=== PATIENT | male | born 1950 | race American Indian/Alaskan Native ===

== ENCOUNTER 2017-07-03 17:10 | Emergency (ER) | payer SELFPAY ==
--- NOTE | 2017-07-03 16:25 | EDM.PDOC ---
ED HPI GENERAL MEDICAL PROBLEM - General Stated Complaint: IN BY AMBULANCE Time Seen by Provider: 07/03/17 16:05 Source of Information: Reports: Patient History Limitations: Reports: No Limitations - History of Present Illness INITIAL COMMENTS - FREE TEXT/NARRATIVE: This 67 yo male patient was brought to the ED by [facility] due to left arm numbness and the inability to move his left arm. The patient reports he noticed the symptoms this morning when he woke up (between 0630 and 0700). The patient reports he was last normal last night. The patient reports he was in the hospital in [place] 2 weeks ago due to a fall. The patient reports, prior to being in the [facility], the patient had fallen while he was walking out of the [employer] in [place]. The patient reports he fell and hit the back of his head. The patient reports he was hospitalized in [place] for about 20 days due to that fall. The patient reports he has been experiencing intermittent numbness in his left arm since the fall, but his symptoms had always gone away. The patient denies any drug or ETOH use. The patient report that he was told that he may have had a "minor stroke" while he was in the hospital in [place]. Onset: Today Onset Date: 07/03/17 Onset Time: 06:30 Duration: Constant (left arm numbness and weakness) Location: Reports: Upper Extremity, Left Quality: Reports: Other Severity: Moderate Improves with: Reports: None Worsens with: Reports: None Context: Reports: Other Associated Symptoms: Reports: No Other Symptoms - Related Data Allergies Allergy/AdvReac Type Severity Reaction Status Date / Time pollen extracts Allergy Sneezing Verified 11/01/15 19:51 meperidine [From Demerol] AdvReac Intermediate Vomiting Verified 07/03/17 16:21 Home Meds: Home Meds Hydrochlorothiazide 25 mg PO DAILY 07/03/17 [History] Potassium Chloride [Klor-Con 10] 1 tab PO DAILY 07/03/17 [History] Vit #108/Iron/FA [ One Tablet] 1 tab PO DAILY 07/03/17 [History ] Past Medical History Cardiovascular History: Reports: Hypertension Musculoskeletal History: Reports: Fracture Other Neuro History: exposure to agent orange - Infectious Disease History Infectious Disease History: Reports: TB - Past Surgical History GI Surgical History: Reports: Cholecystectomy Social & Family History - Family History Family Medical History: Unobtainable - Tobacco Use Smoking Status *Q: Current Every Day Smoker Years of Tobacco use: 10 Packs/Tins Daily: 0.1 - Recreational Drug Use Recreational Drug Use: No ED ROS GENERAL - Review of Systems Review Of Systems: ROS reveals no pertinent complaints other than HPI. ED EXAM, GENERAL - Physical Exam Exam: See Below Free Text/Narrative:: The patient was unkept (shirt was very dirty, skin was dirty) and the patient smelled of urine. Exam Limited By: Other (The patient was confused, but would answer orientation questions correctly.) General Appearance: Alert, WD/WN, Moderate Distress, Thin Eye Exam: Bilateral Eye: EOMI, Normal Inspection, PERRL Ears: Normal External Exam, Normal Canal, Hearing Grossly Normal, Normal TMs Nose: Normal Inspection, Normal Mucosa, No Blood Throat/Mouth: Normal Inspection, Normal Lips, Normal Teeth, Normal Gums, Normal Oropharynx, Normal Voice, No Airway Compromise Head: Atraumatic, Normocephalic Neck: Supple, Limited Range of Motion, Tender Lateral Respiratory/Chest: No Respiratory Distress, Lungs Clear, Normal Breath Sounds, No Accessory Muscle Use, Chest Non-Tender Cardiovascular: Normal Peripheral Pulses, Regular Rate, Rhythm, No Edema, No Gallop, No JVD, No Murmur, No Rub GI/Abdominal: Normal Bowel Sounds, Soft, Non-Tender, No Organomegaly, No Distention, No Abnormal Bruit, No Mass (Male) Exam: Deferred Rectal (Males) Exam: Deferred Extremities: Other (The patient was unable to squeeze with his left hand (the patient reports his hand is numb and that he is unable to move his arm or hand) . The patient also reports numbness in his left leg, but is able to move his leg and foot with minimal effort. ) Neurological: Alert, Oriented, CN II-XII Intact, Confused (The patient seems confused as to the last time his left arm and left leg felt normal, but consistently reports his left arm and left leg numbness started this morning. ) Psychiatric: Flat Affect Skin Exam: Warm, Dry, Intact, Normal Color, No Rash Lymphatic: No Adenopathy Course - Vital Signs Last Recorded V/S: Last Vital Signs Temp 37.3 C 07/03/17 16:07 Pulse 111 H 07/03/17 16:07 Resp 20 07/03/17 16:07 BP 169/111 H 07/03/17 16:07 Pulse Ox 92 L 07/03/17 16:07 - Orders/Labs/Meds Orders: Active Orders 24 hr Category Date Time Status EKG Documentation Completion [RC] URGENT Care 07/03/17 16:07 Ordered Cervical Spine wo Cont [CT] Urgent Exams 07/03/17 16:16 Ordered Chest 2V [CR] Urgent Exams 07/03/17 16:15 Ordered Head wo Cont [CT] Urgent Exams 07/03/17 16:15 Ordered DRUG SCREEN URINE BIORAD [URCHEM] Stat Lab 07/03/17 16:15 Uncollected UA W/MICROSCOPIC [URIN] Stat Lab 07/03/17 16:15 Uncollected Labs: Laboratory Tests 07/03/17 07/03/17 07/03/17 Range/Units 16:20 16:20 16:20 WBC 12.0 H (5.0-10.0) 10^3/uL RBC 4.22 L (4.6-6.2) 10^6/uL Hgb 14.3 (14.0-18.0) g/dL Hct 41.0 (40.0-54.0) % MCV 97.2 (80-100) fL MCH 33.9 (27.0-34.0) pg MCHC 34.9 (33.0-35.0) g/dL Plt Count 234 (150-450) 10^3/uL Neut % (Auto) 62.0 (42.2-75.2) % Lymph % (Auto) 26.3 (20.5-50.1) % Amelia % (Auto) 9.7 H (2-8) % Eos % (Auto) 1.6 (1.0-3.0) % Baso % (Auto) 0.4 (0.0-1.0) % PT 9.9 (9.0-12.0) SEC INR 1.0 (0.9-1.2) Sodium 140 (135-145) mmol/L Potassium 3.8 (3.6-5.0) mmol/L Chloride 104 (101-111) mmol/L Carbon Dioxide 24.0 (21.0-31.0) mmol/L Anion Gap 15.8 BUN 16 (7-18) mg/dL Creatinine 0.8 (0.6-1.3) mg/dL Est Cr Clr Drug Dosing 93.55 mL/min Estimated GFR (MDRD) > 60 BUN/Creatinine Ratio 20.00 Glucose 104 (74-105) mg/dL Calcium 9.4 (8.4-10.2) mg/dl Magnesium (1.8-2.5) mg/dL Total Bilirubin 0.6 (0.2-1.0) mg/dL AST 25 (10-42) IU/L ALT 14 (10-60) IU/L Alkaline Phosphatase 75 (42-121) IU/L Troponin I 0.31 H* (0.00-0.02) ng/ml Total Protein 7.8 (6.7-8.2) g/dl Albumin 4.0 (3.2-5.5) g/dl Globulin 3.8 Albumin/Globulin Ratio 1.05 Salicylates Acetaminophen Ethyl Alcohol mg/dL 07/03/17 Range/Units 16:20 WBC (5.0-10.0) 10^3/uL RBC (4.6-6.2) 10^6/uL Hgb (14.0-18.0) g/dL Hct (40.0-54.0) % MCV (80-100) fL MCH (27.0-34.0) pg MCHC (33.0-35.0) g/dL Plt Count (150-450) 10^3/uL Neut % (Auto) (42.2-75.2) % Lymph % (Auto) (20.5-50.1) % Amelia % (Auto) (2-8) % Eos % (Auto) (1.0-3.0) % Baso % (Auto) (0.0-1.0) % PT (9.0-12.0) SEC INR (0.9-1.2) Sodium (135-145) mmol/L Potassium (3.6-5.0) mmol/L Chloride (101-111) mmol/L Carbon Dioxide (21.0-31.0) mmol/L Anion Gap BUN (7-18) mg/dL Creatinine (0.6-1.3) mg/dL Est Cr Clr Drug Dosing mL/min Estimated GFR (MDRD) BUN/Creatinine Ratio Glucose (74-105) mg/dL Calcium (8.4-10.2) mg/dl Magnesium 1.5 L (1.8-2.5) mg/dL Total Bilirubin (0.2-1.0) mg/dL AST (10-42) IU/L ALT (10-60) IU/L Alkaline Phosphatase (42-121) IU/L Troponin I (0.00-0.02) ng/ml Total Protein (6.7-8.2) g/dl Albumin (3.2-5.5) g/dl Globulin Albumin/Globulin Ratio Salicylates < 4.0 Acetaminophen < 10.0 Ethyl Alcohol < 5 mg/dL Meds: Medications Discontinued Medications Generic Name Dose Route Start Last Admin Trade Name Freq PRN Reason Stop Dose Admin Aspirin 324 mg 07/03/17 16:51 Aspirin PO 07/03/17 16:52 ONETIME ONE Departure - Departure Time of Disposition: 17:04 Disposition: DC/Tfer to Acute Hospital 02 Condition: Poor Clinical Impression: NSTEMI (non-ST elevated myocardial infarction) - Discharge Information Forms: Interfacility Transfer EMTALA Care Plan Goals: Discussed the examination, lab, EKG and CT results with Dr. Romero (ED provider at [facility] in [place]). Dr. Romero accepted the patient for continued evaluation and management. The patient will be transported by [facility]. - My Orders Last 24 Hours: My Active Orders 07/03/17 16:07 EKG Documentation Completion [RC] URGENT 07/03/17 16:15 Chest 2V [CR] Urgent Head wo Cont [CT] Urgent DRUG SCREEN URINE BIORAD [URCHEM] Stat UA W/MICROSCOPIC [URIN] Stat 07/03/17 16:16 Cervical Spine wo Cont [CT] Urgent - Assessment/Plan Last 24 Hours: My Active Orders 07/03/17 16:07 EKG Documentation Completion [RC] URGENT 07/03/17 16:15 Chest 2V [CR] Urgent Head wo Cont [CT] Urgent DRUG SCREEN URINE BIORAD [URCHEM] Stat UA W/MICROSCOPIC [URIN] Stat 07/03/17 16:16 Cervical Spine wo Cont [CT] Urgent
[2017-07-03 16:34] VITALS: BP 169/111
[2017-07-03 16:47] LABS: CHLORIDE,CL 104 mmol/L (101-111); SODIUM,NA 140 mmol/L (135-145)
[2017-07-03 16:49] LABS: ACETAMINOPHEN < 10.0
[~2017-07-03 17:10] MED LIST: Aspirin 81 MG Tab.Chew PO ONE
--- NOTE | 2017-08-12 05:41 | EKG ---
07/03/2017 - SADE BATES - This 12-lead EKG shows a sinus tachycardia with a ventricular rate of 106. Left axis deviation. Nonspecific T-wave changes in the inferior leads. No acute ST- T wave changes. [facility] /[id number]
== END 2017-07-03 17:36 ==
LOC: DL.ED 17:10
DX: I21.4 Non-ST elevation (NSTEMI) myocardial infarction (principal); I10 Essential (primary) hypertension; F17.210 Nicotine dependence, cigarettes, uncomplicated; Z79.899 Other long term (current) drug therapy; Z90.49 Acquired absence of other specified parts of digestive tract; Z91.048 Other nonmedicinal substance allergy status
CPT/HCPCS: 36415; 70450; 71020; 72125; 80053; 80305; 81001; 83735; 84484; 85025; 85610; 87086; 93005; 93010; 99285; A9270; G0480; 87088; 87186

== ENCOUNTER 2017-08-06 10:23 | Emergency (ER) | payer OTHER ==
[2017-08-06 11:23] LABS: CHLORIDE,CL 105 mmol/L (101-111); SODIUM,NA 142 mmol/L (135-145)
--- NOTE | 2017-08-06 11:23 | CT ---
CLINICAL HISTORY: 67-year-old male with altered mentation reported on recent CT scan head for left ar m weakness to have "senescent changes and chronic cortical infarct right temporal but no acute intrac ranial process". SCAN TECHNIQUE: Volume acquisition of data from an emergency unenhanced CT scan of the head and brain obtained with the patient lying supine on the Siemens multislice scanner [place], [place]. All data archived in the PACS system for storage, reformatting and study. INTERPRETATION: Abnormal but unchanged when compared directly back to 03 July 2017 exam. Uniformly thick bony calvarium without sign of skull fracture, underlying brain contusion or epidural /subdural hematoma (apparent extracranial subcutaneous soft tissue contusion posterior laterally on t he right that was evident on June exam) Abnormally prominent atrophy pattern, symmetric bilaterally, with underlying mirror-image normal vent ricular system (cerebral cortex and cerebellum) and scattered periventricular microvascular ischemic lesions that were present 03 July 2017. 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 Physiologic midline pineal and symmetric choroi d plexus calcifications. No new signs of supratentorial or posterior fossa mass lesion, acute intracerebral/intraventricular/s ubarachnoid hemorrhage, or abnormal extracerebral/intracranial epidural or subdural hematoma. No hydr ocephalus.
[2017-08-06 11:24] LABS: ACETAMINOPHEN < 10
--- NOTE | 2017-08-06 11:26 | EDM.PDOC ---
ED HPI GENERAL MEDICAL PROBLEM - General Chief Complaint: Headache Stated Complaint: ELEVATED BP.IN BY [facility] Time Seen by Provider: 08/06/17 10:40 Source of Information: Reports: Patient, EMS History Limitations: Reports: Altered Mental Status - History of Present Illness INITIAL COMMENTS - FREE TEXT/NARRATIVE: This 67 yo male patient was brought to the ED by [facility] due to increased confusion , a posterior headache and high blood pressure. The patient reports he has been having similar symptoms over the past 2-3 weeks. The patient has a history of a traumatic brain injury, has been seen here as well as in [place] for the brain injury. There was no family available during the visit. The patient believes that he is in [place] in [place] at this time. The patient reports he has not been seen by his primary care facility, but does not know who his primary care provider is at this time. Onset: Gradual Duration: Getting Worse, Intermittent Location: Reports: Head (posterior headache), Generalized (body pain), Other ( elevated blood pressure (reported by patient)) Quality: Reports: Ache, Dull Severity: Moderate Improves with: Reports: None Worsens with: Reports: None Associated Symptoms: Reports: No Other Symptoms, Other Headache Pain Score (Numeric/FACES): 10 - Related Data Allergies Allergy/AdvReac Type Severity Reaction Status Date / Time pollen extracts Allergy Sneezing Verified 08/06/17 10:31 meperidine [From Demerol] AdvReac Intermediate Vomiting Verified 08/06/17 10:31 Home Meds: Home Meds Hydrochlorothiazide 25 mg PO DAILY 07/03/17 [History] Potassium Chloride [Klor-Con 10] 1 tab PO DAILY 07/03/17 [History] Vit #108/Iron/FA [ One Tablet] 1 tab PO DAILY 07/03/17 [History ] Past Medical History HEENT History: Reports: Cataract, Hard of Hearing, Impaired Vision Other HEENT History: wears glassess. Cataract bilat., no surgery. Right ear [place]. Cardiovascular History: Reports: Heart Failure, Hypertension Respiratory History: Reports: SOB Gastrointestinal History: Reports: Gastritis Genitourinary History: Reports: Other (See Below) Other Genitourinary History: states he was told his right kidney is weak Musculoskeletal History: Reports: Fracture Neurological History: Reports: Head Trauma Other Neuro History: exposure to agent orange Endocrine/Metabolic History: Reports: Diabetes, Type II Oncologic (Cancer) History: Reports: None - Infectious Disease History Infectious Disease History: Reports: TB - Past Surgical History GI Surgical History: Reports: Cholecystectomy Social & Family History - Family History Family Medical History: Unobtainable - Tobacco Use Smoking Status *Q: Current Some Day Smoker Years of Tobacco use: 20 Packs/Tins Daily: 1 - Caffeine Use Caffeine Use: Reports: Coffee, Soda - Recreational Drug Use Recreational Drug Use: No ED ROS GENERAL - Review of Systems Review Of Systems: ROS reveals no pertinent complaints other than HPI. ED EXAM, GENERAL - Physical Exam Exam: See Below Exam Limited By: No Limitations General Appearance: Alert, Moderate Distress Eye Exam: Bilateral Eye: EOMI, Normal Inspection, PERRL Ears: Normal External Exam, Normal Canal, Hearing Grossly Normal, Normal TMs Nose: Normal Inspection, Normal Mucosa, No Blood Throat/Mouth: Normal Inspection, Normal Lips, Normal Teeth, Normal Gums, Normal Oropharynx, Normal Voice, No Airway Compromise Head: Atraumatic, Normocephalic Neck: Normal Inspection, Supple, Non-Tender, Full Range of Motion Respiratory/Chest: No Respiratory Distress, Lungs Clear, Normal Breath Sounds, No Accessory Muscle Use, Chest Non-Tender Cardiovascular: Normal Peripheral Pulses, Regular Rate, Rhythm, No Edema, No Gallop, No JVD, No Murmur, No Rub GI/Abdominal: Normal Bowel Sounds, Soft, Non-Tender, No Organomegaly, No Distention, No Abnormal Bruit, No Mass (Male) Exam: Deferred Rectal (Males) Exam: Deferred Back Exam: Normal Inspection, Full Range of Motion, NT Extremities: Normal Inspection, Normal Range of Motion, Non-Tender, Normal Capillary Refill, No Pedal Edema Neurological: Alert, CN II-XII Intact, Normal Cognition, Confused, Disoriented Psychiatric: Flat Affect Skin Exam: Warm, Dry, Intact, Normal Color, No Rash Lymphatic: No Adenopathy Course - Vital Signs Last Recorded V/S: Last Vital Signs Temp 37.0 C 08/06/17 10:32 Pulse 64 08/06/17 13:21 Resp 18 08/06/17 13:21 BP 144/100 H 08/06/17 13:21 Pulse Ox 96 08/06/17 13:21 - Orders/Labs/Meds Orders: Active Orders 24 hr Category Date Time Status EKG Documentation Completion [RC] URGENT Care 08/06/17 10:45 Ordered Labs: Laboratory Tests 08/06/17 08/06/17 08/06/17 Range/Units 10:54 10:54 10:54 WBC 8.6 (5.0-10.0) 10^3/uL RBC 4.40 L (4.6-6.2) 10^6/uL Hgb 14.7 (14.0-18.0) g/dL Hct 42.4 (40.0-54.0) % MCV 96.4 (80-100) fL MCH 33.4 (27.0-34.0) pg MCHC 34.7 (33.0-35.0) g/dL Plt Count 193 (150-450) 10^3/uL Neut % (Auto) 62.2 (42.2-75.2) % Lymph % (Auto) 26.4 (20.5-50.1) % Mellette % (Auto) 9.0 H (2-8) % Eos % (Auto) 1.6 (1.0-3.0) % Baso % (Auto) 0.8 (0.0-1.0) % Sodium 142 (135-145) mmol/L Potassium 4.1 (3.6-5.0) mmol/L Chloride 105 (101-111) mmol/L Carbon Dioxide 24.0 (21.0-31.0) mmol/L Anion Gap 17.1 BUN 11 (7-18) mg/dL Creatinine 0.9 (0.6-1.3) mg/dL Est Cr Clr Drug Dosing 81.11 mL/min Estimated GFR (MDRD) > 60 BUN/Creatinine Ratio 12.22 Glucose 89 (74-105) mg/dL Lactic Acid (0.5-2.2) mmol/L Calcium 9.4 (8.4-10.2) mg/dl Magnesium 1.6 L (1.8-2.5) mg/dL Total Bilirubin 0.8 (0.2-1.0) mg/dL AST 19 (10-42) IU/L ALT 12 (10-60) IU/L Alkaline Phosphatase 59 (42-121) IU/L Ammonia 16 (11-35) umol/L Troponin I < 0.02 (0.00-0.02) ng/ml Total Protein 7.8 (6.7-8.2) g/dl Albumin 4.0 (3.2-5.5) g/dl Globulin 3.8 Albumin/Globulin Ratio 1.05 Urine Color (YELLOW) Urine Appearance (CLEAR) Urine pH (5.0-9.0) Ur Specific [place] (1.005-1.030) Urine Protein (NEGATIVE) Urine Glucose (UA) (NEGATIVE) Urine Ketones (NEGATIVE) Urine Occult Blood (NEGATIVE) Urine Nitrite (NEGATIVE) Urine Bilirubin (NEGATIVE) Urine Urobilinogen (0.2-1.0) mg/dL Ur Leukocyte Esterase (NEGATIVE) Urine RBC /HPF Urine WBC (0-5/HPF) /HPF Ur Epithelial Cells /HPF Urine Bacteria (0-FEW/HPF) /HPF Urine Mucus /LPF Urine Opiates Screen (NEGATIVE) Ur Oxycodone Screen (NEGATIVE) Urine Methadone Screen (NEGATIVE) Acetaminophen < 10 Ur Barbiturates Screen (NEGATIVE) U Tricyclic Antidepress (NEGATIVE) Ur Phencyclidine Scrn (NEGATIVE) Ur Amphetamine Screen (NEGATIVE) U Methamphetamines Scrn (NEGATIVE) Urine MDMA Screen (NEGATIVE) U Benzodiazepines Scrn (NEGATIVE) Urine Cocaine Screen (NEGATIVE) U Marijuana (THC) Screen (NEGATIVE) Ethyl Alcohol 15 mg/dL 08/06/17 08/06/17 08/06/17 Range/Units 10:54 10:57 10:57 WBC (5.0-10.0) 10^3/uL RBC (4.6-6.2) 10^6/uL Hgb (14.0-18.0) g/dL Hct (40.0-54.0) % MCV (80-100) fL MCH (27.0-34.0) pg MCHC (33.0-35.0) g/dL Plt Count (150-450) 10^3/uL Neut % (Auto) (42.2-75.2) % Lymph % (Auto) (20.5-50.1) % Mellette % (Auto) (2-8) % Eos % (Auto) (1.0-3.0) % Baso % (Auto) (0.0-1.0) % Sodium (135-145) mmol/L Potassium (3.6-5.0) mmol/L Chloride (101-111) mmol/L Carbon Dioxide (21.0-31.0) mmol/L Anion Gap BUN (7-18) mg/dL Creatinine (0.6-1.3) mg/dL Est Cr Clr Drug Dosing mL/min Estimated GFR (MDRD) BUN/Creatinine Ratio Glucose (74-105) mg/dL Lactic Acid 1.3 (0.5-2.2) mmol/L Calcium (8.4-10.2) mg/dl Magnesium (1.8-2.5) mg/dL Total Bilirubin (0.2-1.0) mg/dL AST (10-42) IU/L ALT (10-60) IU/L Alkaline Phosphatase (42-121) IU/L Ammonia (11-35) umol/L Troponin I (0.00-0.02) ng/ml Total Protein (6.7-8.2) g/dl Albumin (3.2-5.5) g/dl Globulin Albumin/Globulin Ratio Urine Color Yellow (YELLOW) Urine Appearance Clear (CLEAR) Urine pH 6.0 (5.0-9.0) Ur Specific [place] 1.025 (1.005-1.030) Urine Protein Negative (NEGATIVE) Urine Glucose (UA) Negative (NEGATIVE) Urine Ketones Negative (NEGATIVE) Urine Occult Blood Negative (NEGATIVE) Urine Nitrite Negative (NEGATIVE) Urine Bilirubin Negative (NEGATIVE) Urine Urobilinogen 2.0 H (0.2-1.0) mg/dL Ur Leukocyte Esterase Negative (NEGATIVE) Urine RBC 0-5 /HPF Urine WBC 0-5 (0-5/HPF) /HPF Ur Epithelial Cells Moderate H /HPF Urine Bacteria Few (0-FEW/HPF) /HPF Urine Mucus Moderate H /LPF Urine Opiates Screen Negative (NEGATIVE) Ur Oxycodone Screen Negative (NEGATIVE) Urine Methadone Screen Negative (NEGATIVE) Acetaminophen Ur Barbiturates Screen Negative (NEGATIVE) U Tricyclic Antidepress Negative (NEGATIVE) Ur Phencyclidine Scrn Negative (NEGATIVE) Ur Amphetamine Screen Negative (NEGATIVE) U Methamphetamines Scrn Negative (NEGATIVE) Urine MDMA Screen Negative (NEGATIVE) U Benzodiazepines Scrn Negative (NEGATIVE) Urine Cocaine Screen Negative (NEGATIVE) U Marijuana (THC) Screen Negative (NEGATIVE) Ethyl Alcohol mg/dL - Re-Assessments/Exams Free Text/Narrative Re-Assessment/Exam: 08/06/17 13:05 Discussed the history, examination, lab, and CT results with Dr. Joshi. With no medical reason for for criteria (other than confusion which is chronic in nature ), Dr. Joshi requested additional resources for continued evaluation and management. The patient's son (Leonard) called and will be on the way to the ED for further information and continued care. Departure - Departure Time of Disposition: 15:28 Disposition: Home, Self-Care 01 Condition: Fair Clinical Impression: Altered mental status Qualifiers: Altered mental status type: delirium Qualified Code(s): R41.0 - Disorientation , unspecified - Discharge Information Instructions: Dementia Forms: ED Department Discharge Care Plan Goals: Discussed the examination, lab, EKG and CT results with the patient and his son. The family were given information about additional contacts and resources available at [place]. If the patient has any additional symptoms or concerns , the patient should follow-up with his primary care facility or return to the ED. - My Orders Last 24 Hours: My Active Orders 08/06/17 10:45 EKG Documentation Completion [RC] URGENT - Assessment/Plan Last 24 Hours: My Active Orders 08/06/17 10:45 EKG Documentation Completion [RC] URGENT
[2017-08-06 15:44] VITALS: BP 142/99
--- NOTE | 2017-08-28 13:20 | EKG ---
08/06/2017 - SADE BATES - TIME: 11:14 EKG shows normal sinus rhythm. Left axis deviation. [facility] /[id number]
== END 2017-08-06 15:35 | disposition home or self-care (01) ==
LOC: DL.ED 10:23
DX: R41.0 Disorientation, unspecified (principal); I11.0 Hypertensive heart disease with heart failure; I50.9 Heart failure, unspecified; E11.9 Type 2 diabetes mellitus without complications; F17.210 Nicotine dependence, cigarettes, uncomplicated; Z90.49 Acquired absence of other specified parts of digestive tract; Z88.8 Allergy status to other drugs, medicaments and biological substances; Z79.899 Other long term (current) drug therapy
CPT/HCPCS: 36415; 70450; 80053; 80305; 81001; 82140; 83605; 83735; 84484; 85025; 93005; 93010; 99285; G0480; 99284

== ENCOUNTER 2018-07-27 19:34 | Emergency (ER) | payer OTHER ==
[2018-07-27] MEDS ORDERED: MVI, Adult with Vitamin K 10 ML, Folic Acid 1 MG, Thiamine 100 MG in Lactated Ringers 1... IV ONE ×4 (19:45)
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
[2018-07-27 19:56] VITALS: BP 135/84
[2018-07-27] MEDS ORDERED: Ondansetron 4 MG/2 ML SDV IV ONE (20:17)
[2018-07-27 20:23] LABS: ANION GAP 14.7; CHLORIDE,CL 101 mmol/L (101-111); SODIUM,NA 142 mmol/L (135-145)
== END 2018-07-27 23:37 ==
LOC: EDUNIT# 19:34 → DL.ED 19:34
DX: F10.129 Alcohol abuse with intoxication, unspecified (principal); Y90.8 Blood alcohol level of 240 mg/100 ml or more
CPT/HCPCS: 36415; 80053; 84484; 85025; 94762; 96360; 99284; G0480; J3411; J7120; 99283; J3490